=== PATIENT | female | born 1980 | race Caucasian/White ===

== ENCOUNTER 2016-10-25 10:51 | Emergency (ER) | payer SELFPAY ==
[2016-10-25 10:54] VITALS: BP 142/93; BMI 25.0
--- NOTE | 2016-10-25 11:51 | DR.GENAD ---
HPI - PCP Primary Care Physician: Mor Knapp - HPI Comment HPI Comment: PATIENT SAID RID POP WHEN SHE FELL. SHE IS SOB ON DEEP BREATHING. NO LOC. ABRASION OVER RIGHT ELBOW. ELBOW NOT TENDER. - Complaint/Symptoms Chief Complaint Doctors Comments: FELL OFF SWING. LEFT RIB PAIN. Chief Complaint:: Pt states she fell off of a 25 foot tree swing and pt head a pop in her rib area. She is c/o rib and arm pain and states she has difficulty breathing in. - Nurses notes reviewed Nurses Notes Review: Yes - Source History Provided: Patient - Mode of Arrival Mode of Arrival: Ambulatory - Timing Onset of Chief Complaint: 10/23/16 Came on: Suddenly - Duration Duration: Constant Duration: Days - Severity Severity: Moderate PMH - PMH Past Medical History: No Past Surgical History: No Surgical History: No History - Family History History of Family Medical Conditions: Yes Family Medical History: Cancer, [place] - Social History Does patient currently use any type of tobacco product: Yes Have you used tobacco products in the last 12 months: Yes Type of Tobacco Use: Cigarettes Does any household member use tobacco: No Alcohol Use: None Do you use any recreational Drugs:: No Lives With: Family Lives Where: Home - infectious screening In the last 2 months have you had wt loss of >10#?: NO Have you had fever, night sweats or hemotysis?: No Have you traveled outside the country in the last 6 months?: No Isolation: Standard ROS - Review of Systems Constitutional: No Symptoms Reported Eyes: No Symptoms Reported ENTM: No Symptoms Reported Respiratoy: Short of Breath. negative: Productive Cough, Non-Productive Cough, Wheezing, Hemoptysis Cardiovascular: No Symptoms Reported, Chest Pain (LT RIB PAIN), Other Gastrointestinal/Abdominal: No Symptoms Reported Genitourinary: No Symptoms Reported Neurological: No Symptoms Reported Musculoskeletal: Left, Chest wall (LT RIB PAIN), Arm (RIGHT ARM PAIN.) Integumentary: No Symptoms Reported Hematologic/Lymphatic: No Symptoms Reported Endocrine: No Symptoms Reported All Other Systems: Reviewed and Negative PE - Vital Signs Vitals: Temperature 98 F Pulse Rate 76 Respiratory Rate 18 Blood Pressure [Left Arm] 160/81 Blood Pressure 142/93 O2 Sat by Pulse Oximetry 98 - General Limitations: No Limitations General Appearance: Alert - Head Head Exam: Normal Inspection - Eyes Eye exam: Normal Appearance - ENT ENT Exam: Normal External Ear Exam External Ear Exam: Normal External Inspection TM/Canal Exam: Bilateral Normal Nose Exam: Normal Nose Exam Mouth Exam: Normal Inspection Throat Exam: Normal Inspection - Neck Neck Exam: Normal Inspection - Chest Chest Inspection: Symmetric Chest Wall Rise - Respiratory Respiratory Exam: Normal Lung Sounds Bilat Respiratory Exam: Bilateral Clear to Auscultation - Cardiovascular Cardiovascular Exam: Regular Rate, Normal Rhythm, Normal Heart Sounds - Abdominal Exam Abdominal Exam: Normal Bowel Sounds, Soft. negative: Tenderness - Extremities Extremities Exam: Tenderness (SKIN TENDERNESS FROM ABRASION ON RT ELBOW AND ARM. ) - Back Back Exam: Normal Inspection - Neurologic Neurological Exam: Alert, Oriented X3 - Psychiatric Psychiatric Exam: Normal Affect, Normal Mood - Skin Skin Exam: Erythema MDM - Differential Diagnosis Differential Diagnosis: CONTUSION RT ARM, LT RIB FRACTURE, SAND CONTUSION. Course - Treatment Treatment: SEE ORDERS. - Education/Counseling Education/Counseling: Patient, Education Educated On: Diagnosis, Needs for Follow Up ROR - XRAY XRAY Interpreted by: Radiologist XRAY Findings: REPORT DISCUSS WITH PATIENT. - Diagnosis Discharge Problem: Rib pain on left side Rib contusion Qualifiers: Encounter type: initial encounter Laterality: left Qualified Code(s): S20.212A - Contusion of left front wall of thorax, initial encounter - Discharge Plan Disposition: 01 HOME, SELF-CARE Condition: Stable Prescriptions: Hydrocodone-Acetaminophen [[place] 5-325 mg] 1 tab PO Q6HR PRN #12 tab PRN Reason: Cyclobenzaprine HCl [FLEXERIL 10 MG *] 10 mg PO TID #20 tab - Follow ups/Referrals Follow ups/Referrals: MOR KNAPP [Primary Care Provider] - 3 days - Instructions Instructions: Rib Contusion Additional Instructions: RETURN TO ED IF WORSE.
--- NOTE | 2016-10-25 13:47 | RAD ---
HISTORY: Injury, fall, left rib pain Study: Left ribs five view Comparison: None Findings: Examination of the left ribs demonstrated no evidence for fracture, lytic, or blastic lesion. No pne umothorax or pleural effusion is identified. The lung flores are clear peer IMPRESSION: Intact left ribs Lungs clear Reported By:
== END 2016-10-25 14:28 | disposition home or self-care (01) ==
LOC: ER 10:51
DX: S20.212A Contusion of left front wall of thorax, initial encounter (principal); R07.89 Other chest pain; W19.XXXA Unspecified fall, initial encounter; Y92.9 Unspecified place or not applicable
CPT/HCPCS: 71111; 99282; 99283

== ENCOUNTER 2017-01-06 15:13 | Emergency (ER) | payer SELFPAY ==
[2017-01-06 15:18] VITALS: BP 116/82; BMI 25.9
[2017-01-06 15:42] LABS: BILIRUBIN,URINE 1+ (NEGATIVE); BLOOD/HEMOGLOBIN,URINE 1+ (NEGATIVE); GLUCOSE, URINE NEGATIVE (NEGATIVE); KETONES,URINE 3+ (NEGATIVE); LEUKOCYTE ESTERASE ,URINE 2+ (NEGATIVE); NITRITES,URINE NEGATIVE (NEGATIVE); PROTEIN,URINE 2+ (NEGATIVE); UROBILINOGEN,URINE 2+ (NORMAL)
[2017-01-06 15:49] LABS: APPEARANCE,URINE HAZY (CLEAR); BACTERIA,URINE TRACE /HPF (NEGATIVE); COLOR,URINE YELLOW (YELLOW); MUCUS,URINE FEW /HPF (NEGATIVE); RBC,URINE 0-2 /HPF (NEGATIVE); SQUAMOUS EPITHELIAL CELL,UR MODERATE /HPF (NEGATIVE)
--- NOTE | 2017-01-06 16:02 | DR.GENAD ---
HPI - PCP Primary Care Physician: marcela - HPI Comment HPI Comment: Pt c/o vaginal spotting when she wipes. Onset is this morning. She denies fever, chills and sweats. She denies urinary urgency and frequency and she denies burning upon urination. She denies pain. Pt is ~ 5 wks EGA. No care. Home pregnacy test a few weeks ago. - Complaint/Symptoms Chief Complaint Doctors Comments: "vaginal spotting" Chief Complaint:: patient stated she is 5 weeks and her abd has been hurting and she is spotting blood but only when she wipes. - Nurses notes reviewed Nurses Notes Review: Yes - Source History Provided: Patient - Mode of Arrival Mode of Arrival: Ambulatory - Timing Onset of Chief Complaint: 01/06/17 Came on: Suddenly - Duration How lon Duration: Hours - Severity Severity: Mild - Other History Other History: no sex in 4-5 wks PMH - PMH Past Medical History: No Past Surgical History: No Surgical History: No History - Family History History of Family Medical Conditions: Yes Family Medical History: Cancer, [place] - Social History Does patient currently use any type of tobacco product: Yes Have you used tobacco products in the last 12 months: Yes Type of Tobacco Use: Cigarettes How many years tobacco product used: 3 Does any household member use tobacco: No Alcohol Use: None Do you use any recreational Drugs:: No Lives With: Family Lives Where: Home - infectious screening In the last 2 months have you had wt loss of >10#?: NO Have you had fever, night sweats or hemotysis?: No Have you traveled outside the country in the last 6 months?: No Isolation: Standard ROS - Review of Systems Constitutional: No Symptoms Reported Respiratoy: No Symptoms Reported Cardiovascular: No Symptoms Reported Gastrointestinal/Abdominal: No Symptoms Reported Genitourinary: See HPI, Other (spotting) Neurological: No Symptoms Reported Musculoskeletal: No Symptoms Reported Integumentary: No Symptoms Reported Hematologic/Lymphatic: No Symptoms Reported Endocrine: No Symptoms Reported Psychiatric: No Symptoms Reported All Other Systems: Reviewed and Negative PE - Vital Signs Vitals: Temperature 98.6 F Pulse Rate 84 Respiratory Rate 18 Blood Pressure [Left Arm] 160/81 Blood Pressure 116/82 O2 Sat by Pulse Oximetry 98 - General Limitations: No Limitations General Appearance: Alert, In No Apparent Distress - Head Head Exam: Normal Inspection, Atraumatic - Neck Neck Exam: Normal Inspection, Full ROM, Trachea Midline - Chest Chest Inspection: Normal Inspection, Symmetric Chest Wall Rise - Cardiovascular Cardiovascular Exam: Regular Rate, Normal Rhythm, Normal Heart Sounds - Abdominal Exam Abdominal Exam: Normal Inspection, Normal Bowel Sounds, Soft - Extremities Extremities Exam: Normal Inspection, Full ROM - Back Back Exam: Normal Inspection, Full ROM - Neurologic Neurological Exam: Alert, Oriented X3, CN II-XII Intact - Skin Skin Exam: Warm, Dry, Intact, Normal Color MDM - Differential Diagnosis Differential Diagnosis: BV, threatened AB Course - Reevaluation 1st: Unchanged - Education/Counseling Education/Counseling: Patient Educated On: Treatment, Diagnosis, Prognosis, Needs for Follow Up ROR - Labs Reviewed Laboratory Results Reviewed?: Yes Result Diagrams: 01/06/17 16:13 01/06/17 16:13 Laboratory: WBC 5.4 X10^3/uL (3.6-10.0) 01/06/17 16:13 RBC 4.52 X10^6/uL (3.5-5.4) 01/06/17 16:13 Hgb 13.7 g/dL (12.0-16.0) 01/06/17 16:13 Hct 39.9 % (36.0-47.0) 01/06/17 16:13 MCV 88.3 fL (80.0-100.0) 01/06/17 16:13 MCH 30.3 pg (27.0-34.0) 01/06/17 16:13 MCHC 34.3 g/dL (33.0-35.0) 01/06/17 16:13 RDW 13.3 % (11.6-16.5) 01/06/17 16:13 Plt Count 243 X10^3/uL (150.0-450.0) 01/06/17 16:13 MPV 7.9 fL (7.4-11.0) 01/06/17 16:13 Neut % 58.1 % (42.0-75.0) 01/06/17 16:13 Lymph % 31.9 % (21.0-51.0) 01/06/17 16:13 [place] % 6.5 % (0.0-13.0) 01/06/17 16:13 Eos % 2.6 % (0.9-2.9) 01/06/17 16:13 Baso % 0.9 % (0.2-1.0) 01/06/17 16:13 Neut # 3.1 x10^3/uL (2.2-4.8) 01/06/17 16:13 Lymph # 1.7 X10^3/uL (1.3-2.9) 01/06/17 16:13 [place]y # 0.3 x10^3/uL (0.3-0.8) 01/06/17 16:13 Eos # 0.1 x10^3/uL (0.0-0.2) 01/06/17 16:13 Baso # 0.0 X10^3/uL (0.0-0.1) 01/06/17 16:13 Absolute Nucleated RBC 0.0 /100WBC 01/06/17 16:13 Sodium 138 mmol/L (136-145) 01/06/17 16:13 Corrected Sodium TNP 01/06/17 16:13 Potassium 3.3 mmol/L (3.5-5.1) L 01/06/17 16:13 Chloride 105 mmol/L (98-107) 01/06/17 16:13 Carbon Dioxide 24.9 mmol/L (21-32) 01/06/17 16:13 BUN 14 mg/dL (7-18) 01/06/17 16:13 Creatinine 0.80 mg/dL (0.55-1.02) 01/06/17 16:13 Est GFR (MDRD) Af Amer > 60 (>60) 01/06/17 16:13 Est GFR (MDRD) Non-Af > 60 (>60) 01/06/17 16:13 Glucose 87 mg/dL (65-99) 01/06/17 16:13 Calcium 8.4 mg/dL (8.5-10.1) L 01/06/17 16:13 Corrected Calcium TNP 01/06/17 16:13 Total Bilirubin 0.40 mg/dL (0.2-1.0) 01/06/17 16:13 AST 13 Units/L (15-37) L 01/06/17 16:13 ALT 19 Units/L (12-78) 01/06/17 16:13 Alkaline Phosphatase 57 Units/L (46-116) 01/06/17 16:13 Total Protein 7.2 g/dL (6.4-8.2) 01/06/17 16:13 Albumin 3.5 g/dL (3.4-5.0) 01/06/17 16:13 Globulin 3.7 g/dL (2.5-4.5) 01/06/17 16:13 Albumin/Globulin Ratio 0.9 Ratio (1.1-2.1) L 01/06/17 16:13 HCG, Qual Positive >10 mIU/mL 01/06/17 16:13 Specimen Type Clean catch urine 01/06/17 15:33 Urine Color Yellow (YELLOW) 01/06/17 15:33 Urine Appearance Hazy (CLEAR) 01/06/17 15:33 Urine pH 6.0 (5.0 - 8.0) 01/06/17 15:33 Ur Specific [place] 1.025 (1.000-1.030) 01/06/17 15:33 Urine Protein 2+ (NEGATIVE) 01/06/17 15:33 Urine Glucose (UA) Negative (NEGATIVE) 01/06/17 15:33 Urine Ketones 3+ (NEGATIVE) 01/06/17 15:33 Urine Occult Blood 1+ (NEGATIVE) 01/06/17 15:33 Urine Nitrite Negative (NEGATIVE) 01/06/17 15:33 Urine Bilirubin 1+ (NEGATIVE) 01/06/17 15:33 Urine Urobilinogen 2+ (NORMAL) 01/06/17 15:33 Ur Leukocyte Esterase 2+ (NEGATIVE) 01/06/17 15:33 Urine RBC 0-2 /HPF (NEGATIVE) 01/06/17 15:33 Urine WBC 0-3 /HPF (NEGATIVE) 01/06/17 15:33 Ur Squamous Epith Cells Moderate /HPF (NEGATIVE) 01/06/17 15:33 Urine Bacteria Trace /HPF (NEGATIVE) 01/06/17 15:33 Urine Mucus Few /HPF (NEGATIVE) 01/06/17 15:33 Ur Culture Indicated? No/not indicated 01/06/17 15:33 - Diagnosis Discharge Problem: Vaginal spotting, Hypokalemia - Discharge Plan Disposition: 01 HOME, SELF-CARE Condition: Stable - Follow ups/Referrals Follow ups/Referrals: Sg Bazan [Primary Care Provider] - 3 days - Instructions Instructions: Threatened Miscarriage, Vaginal Bleeding During , First Trimester, Threatened Miscarriage, [id number], Hypokalemia
[2017-01-06 16:22] LABS: BASOPHILS % (AUTO) 0.9 % (0.2-1.0); EOSINOPHILS # (AUTO) 0.1 x10^3/uL (0.0-0.2); EOSINOPHILS % (AUTO) 2.6 % (0.9-2.9); HEMATOCRIT 39.9 % (36.0-47.0); HEMOGLOBIN 13.7 g/dL (12.0-16.0); LYMPHOCYTES # (AUTO) 1.7 X10^3/uL (1.3-2.9); LYMPHOCYTES % (AUTO) 31.9 % (21.0-51.0); MEAN CORPUSCULAR HEMOGLOBIN 30.3 pg (27.0-34.0); MEAN CORPUSCULAR HGB CONC 34.3 g/dL (33.0-35.0); MEAN CORPUSCULAR VOLUME 88.3 fL (80.0-100.0); MEAN PLATELET VOLUME 7.9 fL (7.4-11.0); MONOCYTES # (AUTO) 0.3 x10^3/uL (0.3-0.8); MONOCYTES % (AUTO) 6.5 % (0.0-13.0); NEUTROPHILS # (AUTO) 3.1 x10^3/uL (2.2-4.8); NEUTROPHILS % (AUTO) 58.1 % (42.0-75.0); PLATELET COUNT 243 X10^3/uL (150.0-450.0); RED BLOOD COUNT 4.52 X10^6/uL (3.5-5.4); RED CELL DISTRIBUTION WIDTH 13.3 % (11.6-16.5); WHITE BLOOD COUNT 5.4 X10^3/uL (3.6-10.0)
[2017-01-06 16:32] LABS: SERUM PREGNANCY TEST, QUAL POSITIVE >10 mIU/mL
[2017-01-06 16:34] LABS: ALANINE AMINOTRANSFERASE 19 Units/L (12-78); ALBUMIN 3.5 g/dL (3.4-5.0); ALKALINE PHOSPHATASE 57 Units/L (46-116); ASPARTATE AMINO TRANSFERASE 13 Units/L (15-37); BLOOD UREA NITROGEN 14 mg/dL (7-18); CALCIUM 8.4 mg/dL (8.5-10.1); CARBON DIOXIDE 24.9 mmol/L (21-32); CHLORIDE 105 mmol/L (98-107); GLUCOSE 87 mg/dL (65-99); SODIUM 138 mmol/L (136-145); TOTAL PROTEIN 7.2 g/dL (6.4-8.2); eGFR BLACK RACES > 60 (>60); eGFR NON BLACK RACES > 60 (>60)
[2017-01-06] MEDS ORDERED: D5 1/2 NS 1000 ML 1,000 ML IV ONE ×2 (16:51→17:05)
[2017-01-06] MEDS ORDERED: K-DUR TAB 20 MEQ PO ONE ×2 (17:33→18:21)
== END 2017-01-06 18:30 | disposition home or self-care (01) ==
LOC: ER 15:23
DX: N93.8 Other specified abnormal uterine and vaginal bleeding (principal); E87.6 Hypokalemia; Z3A.01 Less than 8 weeks gestation of pregnancy
CPT/HCPCS: 36415; 80053; 81001; 84703; 85025; 96365; 99283; A4222; J7042

== ENCOUNTER 2017-03-18 14:59 | Emergency (ER) | payer SELFPAY ==
[2017-03-18 15:05] VITALS: BP 110/68; BMI 25.2
--- NOTE | 2017-03-18 15:48 | DR.GENAD ---
HPI - PCP Primary Care Physician: ALPESH - Complaint/Symptoms Chief Complaint Doctors Comments: History as stated. Denies fever, vomiting or diarrhea, Deniea dysphagia. Chief Complaint:: PATIENT STATED 4 DAYS AGO SHE THOUGHT SHE PULLED A MUSCLE IN HER NECK AND LAST NIGHT SHE HAS A KNOT COME UP TO THE LEFT SIDE OF HER NECK. PATIENT STATED SHE IS 14 WEEKS - Source History Provided: Patient - Mode of Arrival Mode of Arrival: Ambulatory - Timing Onset of Chief Complaint: 03/15/17 PMH - PMH Past Medical History: No Past Surgical History: No Surgical History: No History - Family History History of Family Medical Conditions: Yes Family Medical History: Cancer, [place] - Social History Does patient currently use any type of tobacco product: Yes Have you used tobacco products in the last 12 months: Yes Type of Tobacco Use: Cigarettes How many years tobacco product used: 3 Does any household member use tobacco: No Alcohol Use: None Do you use any recreational Drugs:: No Lives With: Family Lives Where: Home - infectious screening In the last 2 months have you had wt loss of >10#?: NO Have you had fever, night sweats or hemotysis?: No Have you traveled outside the country in the last 6 months?: No Isolation: Standard ROS - Review of Systems Eyes: No Symptoms Reported ENTM: No Symptoms Reported Respiratoy: No Symptoms Reported Cardiovascular: No Symptoms Reported Gastrointestinal/Abdominal: No Symptoms Reported Genitourinary: No Symptoms Reported Neurological: No Symptoms Reported Musculoskeletal: No Symptoms Reported Integumentary: No Symptoms Reported Hematologic/Lymphatic: No Symptoms Reported Endocrine: No Symptoms Reported Psychiatric: No Symptoms Reported All Other Systems: Reviewed and Negative PE - Vital Signs Vitals: Temperature 98.6 F Pulse Rate 89 Respiratory Rate 16 Blood Pressure [Left Arm] 160/81 Blood Pressure 110/68 O2 Sat by Pulse Oximetry 100 - General Limitations: No Limitations General Appearance: Alert - Head Head Exam: Normal Inspection, Atraumatic - Eyes Eye exam: Normal Appearance, PERRL, EOMI - ENT ENT Exam: Normal Exam External Ear Exam: Normal External Inspection TM/Canal Exam: Bilateral Normal Nose Exam: Normal Nose Exam, Sinus Tenderness Mouth Exam: Normal Inspection Throat Exam: Normal Inspection - Neck Neck Exam: Normal Inspection, Full ROM, Trachea Midline, Other (one non tender freely moveable ~2mm non erythematous lymph node). negative: Tenderness - Chest Chest Inspection: Normal Inspection - Respiratory Respiratory Exam: Normal Lung Sounds Bilat Respiratory Exam: Bilateral Clear to Auscultation - Cardiovascular Cardiovascular Exam: Regular Rate, Normal Rhythm - Abdominal Exam Abdominal Exam: Normal Inspection Abdominal Tenderness: negative: RUQ, RLQ, LUQ, LLQ, Epigastrium, Suprapubic, Diffuse, Mild, Moderate, Severe, Other - Extremities Extremities Exam: Normal Inspection, Full ROM - Back Back Exam: Normal Inspection, Full ROM - Neurologic Neurological Exam: Alert, Oriented X3, CN II-XII Intact - Psychiatric Psychiatric Exam: Normal Affect - Skin Skin Exam: Warm, Dry, Intact - Diagnosis Discharge Problem: Anterior cervical lymphadenopathy - Discharge Plan Condition: Stable - Follow ups/Referrals Follow ups/Referrals: Sg Bazan [Primary Care Provider] - 3 days - Instructions
== END 2017-03-18 15:55 | disposition home or self-care (01) ==
LOC: ER 15:11
DX: R59.0 Localized enlarged lymph nodes (principal); Z3A.14 14 weeks gestation of pregnancy
CPT/HCPCS: 99281; 99282